=== PATIENT | male | born 1970 | race Caucasian/White ===

== ENCOUNTER 2019-09-14 14:49 | Emergency (ER) | payer OTHER, SELFPAY ==
[2019-09-14 15:00] VITALS: BP 118/72; PULSE 71; RESP 16; TEMP 36.4; O2SAT 98
--- NOTE | 2019-09-14 15:09 | ED.GENADULT ---
HPI - General Adult General Chief complaint: Chest Pain Stated complaint: SOB Time Seen by Provider: 09/14/19 15:01 Source: patient Mode of arrival: ambulatory Limitations: no limitations History of Present Illness HPI narrative: 49-year-old male patient presents to the [facility] with complaints of left-sided chest pain that radiates to the left side of the jaw that started yesterday. Patient states that he was outside just shooting some hoops when he noticed that the chest pain started. Patient states that the chest pain was worse yesterday than it was today. Patient states that the chest pain has been consistent and continues today and rates about 4-5 out of 10 currently. Patient states he does feel little tingliness that radiates up to the neck and into the jaw but denies any pain or tingliness to the left arm. Denies any shortness of breath at this time. Patient does have a history of high cholesterol which she does take atorvastatin for. Patient states he does see a metal work duct installer and is supposed to see him for his yearly in about 2 weeks. Denies any fevers, cough, or flulike symptoms. Denies any sore throat, abdominal pain, nausea, vomiting or diarrhea. Patient states he does have a strong family history of MIs in the past and states that his mother had an TN at a young age. Patient states he did take some baby aspirin yesterday but denies taking any aspirin today. Related Data Home Medications Medication Instructions Recorded Confirmed atorvastatin 10 mg PO DAILY 09/14/19 09/14/19 Allergies Allergy/AdvReac Type Severity Reaction Status Date / Time No Known Allergies Allergy Mild Verified 10/23/09 12:54 Review of Systems Review of Systems: Narrative: CONSTITUTIONAL: Denies fever, chills, or sweats. EYES: Denies visual changes, redness, or discharge. ENT: Denies rhinorrhea, congestion, sore throat, or otalgia. CARDIOVASCULAR: Positive left-sided chest pain with radiation to left jaw, denies palpitations, or edema. RESPIRATORY: Denies cough or dyspnea. GASTROINTESTINAL: Denies abdominal pain, nausea, vomiting, or diarrhea. GENITOURINARY: Denies dysuria or hematuria. SKIN: Denies rash or itching. MUSCULOSKELETAL: Denies back pain, joint pain, or myalgia. NEUROLOGIC: Denies headache, numbness, or weakness. PSYCHIATRIC: Denies anxiety or depression. Exam Narrative: Exam Narrative: GENERAL: Well-appearing, well-nourished, and in no acute distress. HEAD: Normocephalic, atraumatic. EYES: PERRLA and EOMI. ENT: Nares clear, no rhinorrhea or epistaxis. Mucous membranes moist. NECK: Supple. No lymphadenopathy CHEST: Clear to auscultation. No respiratory distress. Patient able talk in clear complete sentences. No tripoding noted. HEART: Regular rate and rhythm. No murmur heard. Normal peripheral pulses. ABDOMEN: Soft, nontender, nondistended, normal active bowel sounds. EXTREMITIES: Normal range of motion. No edema. SKIN: Warm, dry, no rash. NEURO: No focal deficits. Alert and oriented x3. Course Vital Signs Vital signs: Vital Signs Temperature 36.4 C 09/14/19 15:00 Pulse Rate 71 09/14/19 15:00 Respiratory Rate 16 09/14/19 15:00 Blood Pressure 118/72 09/14/19 15:00 Pulse Oximetry 98 09/14/19 15:00 Temperature 36.4 C 09/14/19 15:00 Pulse Rate 71 09/14/19 15:00 Respiratory Rate 16 09/14/19 15:00 Blood Pressure 118/72 09/14/19 15:00 Pulse Oximetry 98 09/14/19 15:00 Vital signs reviewed. Transfer Transfered to: [facility] Transfer rationale: Left-sided chest pain Accepting physician: ROOSEVELT Landry Transfer comments: Called and spoke with ROOSEVELT Landry at [facility] and gave her report on patient that we are sending over with complaints of left-sided chest pain that radiates to the left jaw. EKG with normal sinus rhythm at this time. Discussed with him that he does have a history of high cholesterol and a strong family history of MIs in the past. Frantz is requesting that patient have
[2019-09-14] MEDS: ASPIRIN 81 MG CHEWABLE TABLET 324 MG PO (15:12)
== END 2019-09-14 15:10 | disposition short-term general hospital (02) ==
PROVIDERS: Emergency Provider Nurse Practitioner Family
DX: R07.89 Other chest pain (principal); E78.00 Pure hypercholesterolemia, unspecified
CPT/HCPCS: 93005; 99212; 99213; A9270; G0463

== ENCOUNTER 2019-09-14 15:28 | Emergency (ER) | payer OTHER, SELFPAY ==
--- NOTE | ~2019-09-14 | XR_ITS ---
EXAMINATION: XR chest 2V DATE: 09/14/2019 15:58 INDICATION: Left chest pain. Shortness of breath. TECHNIQUE: Frontal and lateral views of the chest were obtained. COMPARISON: None. FINDINGS: The chest demonstrates clear lungs without pneumonia, pleural effusion, or pneumothorax. Th e heart size is normal. IMPRESSION: 1. No acute cardiopulmonary disease. Reviewed, dictated and finalized at location A.
--- NOTE | 2019-09-14 15:29 | ECG_ITS ---
Measurements Intervals [place] Rate: 65 P: 33 [place]: 148 QRS: 8 QRSD: 85 T: 9 QT: 381 QTc: 397 Interpretive Statements SINUS RHYTHM BORDERLINE T WAVE ABNORMALITY- INFERIOR LEADS BASELINE ARTIFACT- I, II, AVR, AVF BORDERLINE ECG Electronically Signed On 09-15-2019 7:13:18 CDT by Case Chambers D.O.
[2019-09-14 15:39] VITALS: BP 138/104; PULSE 72; RESP 16; TEMP 36.9; O2SAT 98
--- NOTE | 2019-09-14 15:42 | ED.CHESTPAIN ---
HPI - Chest Pain General Chief Complaint: Chest Pain Stated Complaint: chest pain tightness/sob Time Seen by Provider: 09/14/19 15:30 Source: patient Mode of arrival: ambulatory Limitations: no limitations History of Present Illness HPI narrative: A 49 y/o male pt presents to the ED, with c/o lt sided CP that he describes as a tightness and SOB x 1 day. Pt states he noticed the CP when he woke up yesterday and notes taking Aspirin x 81mg and his Sx subsided. He states that he felt fine upon waking up this morning, but after playing basketball with his children today he began having CP/chest tightness and SOB. Pt notes sitting down when the pain and SOB came on, but it did not resolve. He notes that yesterday his pain and SOB was not brought on by increased activity. Pt notes tingling to the lt side of his face, but denies N/V, fever, swelling to BLE or LYN. He denies any pain or SOB in the ED bed. Pt notes a PMHx of Hypercholesterolemia that he takes Lipitor for, but denies and hx of DM, HTN. MD complaint: chest pain Onset (ago): day(s) (1) Timing of current episode: episodic Onset: awoke with symptoms Pain location: left chest Quality: tightness Relieving factors: medication-other (Aspirin x 81 mg) Associated symptoms: dyspnea and other (lt side facial tingling) Treatment prior to arrival: aspirin (x 81 mg) Related Data Home Medications Medication Instructions Recorded Confirmed atorvastatin 10 mg PO DAILY 09/14/19 09/14/19 Allergies Allergy/AdvReac Type Severity Reaction Status Date / Time No Known Allergies Allergy Mild Verified 09/14/19 15:44 Review of Systems Review of Systems: All systems reviewed & are unremarkable except as noted in HPI and below Constitutional: Constitutional: Denies fever(s) and Denies headache(s) Cardiovascular: Cardiovascular: Reports chest pain (lt sided tightness, episodic) and Denies pedal edema Respiratory: Respiratory: Reports dyspnea (episodic) Gastrointestinal: Gastrointestinal: Denies nausea and Denies vomiting [facility] Past Medical History Medical History (Updated 09/14/19 @ 19:21 by Tomás Leblanc DO) High cholesterol Surgical History Surgical History (Updated 09/14/19 @ 16:53 by JUAN DANIEL Robin) No significant past surgical history Social History Social History (Updated 09/14/19 @ 17:05 by Cheyanne Addison [employer]) Smoking status: Never smoker Gender identity (if verbalized by the patient): Male Exam Narrative: Exam Narrative: APPEARANCE: No acute distress, nontoxic, resting in bed EYES: EOMI HEENT: Normocephalic, atraumatic, OMM RESPIRATORY: No respiratory distress Clear to auscultation bilaterally with no rhonchi wheezing or rales. CARDIOVASCULAR: Regular rate and rhythm without murmurs rubs or gallops. ABDOMINAL: Soft, nontender, nondistended, no rebound or guarding MUSCULOSKELETAl: Moves all extremities. No clubbing, cyanosis or edema. NEURO: Awake and alert. Following commands, speech normal, no focal deficits SKIN:: Warm, dry. No rashes lesions or abrasions PSYCHIATRIC: Normal affect/mood, Course Course Emergency Course: Discussed case with Dr. Kauffman. Discussed presentation and work-up at this time. Discussed heart score and admission to chest pain center. At this time Dr. Kauffman does not feel patient needs admission to chest pain center and requests 3-hour troponin and if negative discharge the patient with follow-up as an outpatient Patient has had no chest pain while in ED Discussed with patient results of workup and diagnosis. Discussed need for follow-up with primary care, proper use of medication, and reasons to return to the emergency department. Patient understands and agrees to current treatment plan Vital Signs Vital signs: Vital Signs Temperature 98.5 F 09/14/19 15:39 Pulse Rate 72 09/14/19 15:39 Respiratory Rate 16 09/14/19 15:39 Blood Pressure 138/104 H 09/14/19 15:39 Pulse Oximetry 98 09/14/19 15:39
[2019-09-14 15:43] VITALS: PULSE 72
[2019-09-14 15:45] LABS: Basophils Absolute Auto 0.1 K/mm3 (0.0-0.1); Basophils Percent Auto 0.8 % (0.2-1.2); Eosinophils Absolute Auto 0.1 K/mm3 (0-0.3); Eosinophils Percent Auto 1.5 % (0-4.4); Hematocrit 44.6 % (42.0-52.0); Hemoglobin 14.6 g/dL (14.0-18.0); Immature Granulocyte Absolute 0.03 K/mm3 (0.00-0.031); Immature Granulocyte Percent A 0.5 % (0-0.5); Lymphocytes Absolute Auto 1.87 K/mm3 (0.9-3.2); Lymphocytes Percent Auto 28.8 % (18.3-44.2); Mean Corpuscular HGB Conc 32.7 g/dl (32-36); Mean Corpuscular Hemoglobin 27.1 pg (26-34); Mean Corpuscular Volume 82.7 fl (80-100); Mean Platelet Volume 9.2 fl (7.4-10.4); Monocytes Absolute Auto 0.5 K/mm3 (0.1-0.6); Monocytes Percent Auto 7.7 % (2.6-8.5); Neutrophils Absolute Auto 3.9 K/mm3 (1.3-6.7); Neutrophils Percent Auto 60.7 % (45.5-73.1); Platelet Count Result 261 k/mm3 (150-375); Red Blood Count 5.39 M/mm3 (4.6-6.20); Red Cell Distribution Width 13.2 % (11.5-14.5); White Blood Count 6.5 K/mm3 (4.5-10.0)
[2019-09-14 15:53] LABS: INR 0.9; Partial Thromboplastin Time 27.8 SECONDS (22.3-36.8)
[2019-09-14 15:55] LABS: Blood Urea Nitrogen 14 mg/dL (9-20); Calcium 9.7 mg/dL (8.4-10.2); Carbon Dioxide 32 mmol/L (22-30); Chloride 102 mmol/L (98-107); Estimated CRCL calculation 77 ml/min; Estimated Glomerular Filt Rate > 60; Glucose 106 mg/dL (75-110); Potassium 4.1 mmol/L (3.4-5.0); Sodium 139 mmol/L (137-145)
[2019-09-14 16:07] LABS: Troponin I < 0.012 ng/mL (0.000-0.034)
[2019-09-14 18:40] VITALS: BP 150/107; PULSE 63; PULSE 66; RESP 16; TEMP 36.5; O2SAT 100
[2019-09-14 19:02] LABS: Troponin I < 0.012 ng/mL (0.000-0.034)
[2019-09-14 19:31] VITALS: BP 152/105; PULSE 67; RESP 14; O2SAT 99
== END 2019-09-14 19:32 | disposition home or self-care (01) ==
PROVIDERS: Emergency Medicine; Emergency Provider Emergency Medicine
DX: R07.89 Other chest pain (principal); E78.00 Pure hypercholesterolemia, unspecified; R94.31 Abnormal electrocardiogram [ECG] [EKG]
CPT/HCPCS: 36415; 71046; 80048; 84484; 85025; 85610; 85730; 93005; 99284